=== PATIENT | female | born 1970 | race Caucasian/White ===

== ENCOUNTER → 2016-11-21 | Day surgery (SDC) | payer OTHER ==
[~2016-11-21] VITALS: Ht 162.6 cm; Wt 122.0 kg
[~2016-11-21] MED LIST: AFRIN15 M1; ASPIR-LOW81 MG PO; GLUCOPHAGE 500500 MG PO; IBUPROFEN800 MG PO; JANUVIA50 MG PO; LANTUS INS100 UTS/M1 SQ; LIPITOR TAB 1010 MG PO; LISINOPRIL5 MG PO; LORTAB 7.5-3251 EACH PO; MELOXICAM15 MG PO; PERCOCET 7.5-31 EACH PO; VENLAFAXINE HCL75 MG PO
[2016-11-21 09:02] LABS: HEMOGLOBIN 13.7 gm/dl (12.3-15.3); RED BLOOD COUNT 4.75 M/UL (4.00-5.10); WHITE BLOOD COUNT 5.9 K/UL (4.5-11.0)
== END | disposition home or self-care (01) ==
LOC: OR 08:11
PROVIDERS: Orthopaedic Surgery
PROC: 0QSK04Z Reposition Left Fibula with Internal Fixation Device, Open Approach (ICD-10-PCS; principal; 2016-11-21 14:30)
DX: S82.62XA Displaced fracture of lateral malleolus of left fibula, initial encounter for closed fracture (principal); I10 Essential (primary) hypertension; E78.5 Hyperlipidemia, unspecified; E11.9 Type 2 diabetes mellitus without complications; Z79.4 Long term (current) use of insulin; Z86.69 Personal history of other diseases of the nervous system and sense organs; Z79.82 Long term (current) use of aspirin; Z79.899 Other long term (current) drug therapy
CPT/HCPCS: 36415; 73610; 76000; 80048; 82962; 85025; C1713; J0690; J2250; J2710; J2795; J3010; J7030; J7120